=== PATIENT | female | born 1955 | race Two or more races ===

== ENCOUNTER → 2024-06-09 | Outpatient (CLI) | payer MEDICARE, MEDICAID, SELFPAY ==
--- NOTE | 2024-06-09 12:00 | XR_ITS ---
Examination: Bone densitometry Date and time of exam:June 09, 2019 5:12 AM INDICATIONS: Menopause age 51, family history, mother osteoporosis, personal history diabetes Technique: Lumbar spine and hip total bone mineralization values of an calculated. Peak reference and age match control results have been displayed. Findings: Lumbar spine total bone mineralization is0.785 gm/cm2. This is 2.4 standard deviations below peak reference. This is 0.4 standard deviations below age-matched controls. Hip total bone mineralization is 0.750 gm/cm2 This is 1.6 standard deviations below peak reference. This is 0.3 standard deviations below age-matched controls Impression: There is osteopenia based on lumbar spine measurements. There is osteopenia based on hip measurements
== END | disposition home or self-care (01) ==
LOC: CDIM 11:11
PROVIDERS: Referring Provider Physician Assistant; Visit Provider Physician Assistant
DX: M85.89 Other specified disorders of bone density and structure, multiple sites (principal)
CPT/HCPCS: 77080